=== PATIENT | female | born 1980 | race Caucasian/White ===

== ENCOUNTER 2019-05-11 20:07 | Emergency (ER) | payer OTHER ==
[2019-05-11 20:18] VITALS: BMI 18.3
--- NOTE | 2019-05-11 20:20 | PDOC ---
History of Present Illness - General Chief Complaint: Chest Pain Stated Complaint: CHEST PAIN Time Seen by Provider: 05/11/19 20:20 - History of Present Illness Initial Comments: 05/11/19 20:34 Ms. Mullins is a 39 yo female w/ no significant pmh who presents for evaluation of sudden onset left sided pleuritic chest pain that started 1 hour before presenting to ER. Patient reports that she had previously been in her normal state of health and was cooking dinner for a friend when it occurred. Denies any other symptoms, heavy lifting, or trauma. Denies any long flights or exodgenous hormone use. The patient denies shortness of breath, headache and dizziness. Denies fever, chills, nausea, vomit, diarrhea and constipation. Denies dysuria, frequency, urgency and hematuria. Past History - Past Medical History Allergies/Adverse Reactions: Allergies Allergy/AdvReac Type Severity Reaction Status Date / Time No Known Allergies Allergy Verified 01/05/13 17:12 Home Medications: Ambulatory Orders Azithromycin [Zithromax -] 250 mg PO DAILY #4 tablet 05/11/19 Asthma: No Cancer: No Cardiac Disorders: No COPD: No Diabetes: No HTN: No Seizures: No Thyroid Disease: No - Psycho Social/Smoking Cessation Hx Smoking History: Current every day smoker Have you smoked in the past 12 months: Yes Number of Cigarettes Smoked Daily: 20 Information on smoking cessation initiated: No Hx Alcohol Use: No Drug/Substance Use Hx: No Hx Substance Use Treatment: No Review of Systems - Review of Systems Comments:: 05/11/19 20:41 GENERAL/CONSTITUTIONAL: No fever or chills. No weakness. HEAD, EYES, EARS, NOSE AND THROAT: No change in vision. No ear pain or discharge. No sore throat. CARDIOVASCULAR: +Pleuritic chest pain as described. No shortness of breath RESPIRATORY: No cough, wheezing, or hemoptysis. GASTROINTESTINAL: No nausea, vomiting, diarrhea or constipation. GENITOURINARY: No dysuria, frequency, or change in urination. MUSCULOSKELETAL: No joint or muscle swelling or pain. No neck or back pain. SKIN: No rash NEUROLOGIC: No headache, vertigo, loss of consciousness, or change in strength/ sensation. ENDOCRINE: No increased thirst. No abnormal weight change HEMATOLOGIC/LYMPHATIC: No anemia, easy bleeding, or history of blood clots. ALLERGIC/IMMUNOLOGIC: No hives or skin allergy. *Physical Exam - Vital Signs Last Vital Signs Temp Pulse Resp BP Pulse Ox 98.6 F 112 H 22 H 134/99 100 05/11/19 20:15 05/11/19 20:15 05/11/19 20:15 05/11/19 20:15 05/11/19 20:15 - Physical Exam Comments: 05/11/19 20:41 GENERAL: Awake, alert, and fully oriented, in no acute distress HEAD: No signs of trauma, normocephalic, atraumatic EYES: PERRLA, EOMI, sclera anicteric, conjunctiva clear ENT: Auricles normal inspection, hearing grossly normal, nares patent, oropharynx clear without exudates. Moist mucosa NECK: Normal ROM, supple, no lymphadenopathy, JVD, or masses LUNGS: No distress, speaks full sentences, clear to auscultation bilaterally HEART: +Tachycardic rate. Regular rhythm, normal S1 and S2, no murmurs, rubs or gallops, peripheral pulses normal and equal bilaterally. ABDOMEN: Soft, nontender, normoactive bowel sounds. No guarding, no rebound. No masses EXTREMITIES: Normal inspection, Normal range of motion, no edema. No clubbing or cyanosis. NEUROLOGICAL: Cranial nerves II through XII grossly intact. Normal speech, normal gait, no focal sensorimotor deficits SKIN: Warm, Dry, normal turgor, no rashes or lesions noted. ED Treatment Course - LABORATORY CBC & Chemistry Diagram: 05/11/19 20:30 05/11/19 20:30 Medical Decision Making - Medical Decision Making 05/11/19 20:38 Ms. Mullins is a 39 yo female w/ no significant pmh who presents for evaluation of symptoms concerning for ACS vs. PE vs. other pleural process. Given concerning history for PE, patient will be evaluated with d-dimer, cardiac labs, and EKG. Patient given NS, tylenol, and ASA for symptomatic relief. Further workup pending. 05/11/19 22:16 Patient d-dimer/other labs grossly wnl. Patient reporting relief from symptoms and XR negative. EKG normal sinus. No concern for acute process at this time. Discharging to home for further outpatient follow-up. Laboratory Results - last 24 hr 05/11/19 05/11/19 05/11/19 20:30 20:30 20:30 WBC 11.4 H RBC 4.42 Hgb 13.9 Hct 41.9 D MCV 94.8 MCH 31.5 MCHC 33.3 RDW 12.9 Plt Count 294 D MPV 9.5 D Absolute Neuts (auto) 8.0 Neutrophils % 69.9 Lymphocytes % 21.0 Monocytes % 7.9 Eosinophils % 0.3 Basophils % 0.9 Nucleated RBC % 0 PT with INR 15.10 H INR 1.28 H PTT (Actin FS) 29.8 D-Dimer Sodium 137 Potassium 3.6 Chloride 103 Carbon Dioxide 23 Anion Gap 11 BUN 5.0 L Creatinine 0.7 Est GFR (CKD-EPI)AfAm 126.49 Est GFR (CKD-EPI)NonAf 109.14 Random Glucose 87 Calcium 8.9 Total Bilirubin 0.5 AST 16 ALT 19 Alkaline Phosphatase 68 Creatine Kinase 191 Creatine Kinase Index No Result Required. CK-MB (CK-2) < 1.0 Troponin I < 0.02 Total Protein 7.3 Albumin 3.8 Serum , Qual 05/11/19 05/11/19 20:30 20:30 WBC RBC Hgb Hct MCV MCH MCHC RDW Plt Count MPV Absolute Neuts (auto) Neutrophils % Lymphocytes % Monocytes % Eosinophils % Basophils % Nucleated RBC % PT with INR INR PTT (Actin FS) D-Dimer 238 Sodium Potassium Chloride Carbon Dioxide Anion Gap BUN Creatinine Est GFR (CKD-EPI)AfAm Est GFR (CKD-EPI)NonAf Random Glucose Calcium Total Bilirubin AST ALT Alkaline Phosphatase Creatine Kinase Creatine Kinase Index CK-MB (CK-2) Troponin I Total Protein Albumin Serum , Qual Negative Discharge - Discharge Information Problems reviewed: Yes Clinical Impression/Diagnosis: Pain Disposition: HOME - Additional Discharge Information Prescriptions: Azithromycin [Zithromax -] 250 mg PO DAILY #4 tablet - Follow up/Referral - Patient Discharge Instructions Patient Printed Discharge Instructions: DI for Atypical Chest Pain Additional Instructions: You were evaluated today in the ER for your pain. We performed laboratory testing which were all negative and your symptoms improved with medication. We do not believe anything emergent is occurring at this time. We also sent a prescription to your pharmacy. Take all medications as proscribed. Please follow -up with primary care provider for further evaluation. Return to ER if any fever , chills, return of pain, or other concerning symptoms. - Post Discharge Activity
[2019-05-11] MEDS ORDERED: SODIUM CHLORIDE 1,000 ML IV STA (20:23)
[2019-05-11] MEDS ORDERED: ACETAMINOPHEN 1000 MG/100 ML VIAL (NON FORMULARY) IVPB ONE (20:24)
[2019-05-11] MEDS ORDERED: ASPIRIN 81 MG CHEWABLE TABLETS PO ONE (20:24)
[2019-05-11] MEDS ORDERED: ASPIRIN 81 MG CHEWABLE TABLETS ONE (20:28)
[2019-05-11] MEDS ORDERED: ACETAMINOPHEN INJECTION 100 ML IVPB ONE (20:28)
--- NOTE | 2019-05-11 20:34 | PDOC ---
Attending Attestation - Resident Resident Name: Manny Mcmahan - ED Attending Attestation I have performed the following: I have examined & evaluated the patient, The case was reviewed & discussed with the resident, I agree w/resident's findings & plan - HPI HPI: 05/11/19 20:32 Pt comes with pleuritic chest pain. She is thin, and a smoker. She had her tubes toed after her 3 NSVDs and she takes no OCPs. She uses no drugs and only occ alcohol. She takes no meds and she has no docs. She is healthy; she doesn't work. She feels febrile here. No cough however. - Physicial Exam PE: 05/11/19 22:17 Agree with resident exam - Medical Decision Making 05/11/19 22:17 Pt has normal labs; she has a clear CXR; however she is a smoker and she describes a green cough; she will be treated for an atypical pneumonia. 05/11/19 22:18 Pt is feeling better after hydration and meds in the ER.
[2019-05-11] MEDS ORDERED: MAG HYDROX/AL HYDROX/SIMETH 30 ML UNIT-DOSE CUP PO ONE (20:47)
[2019-05-11] MEDS ORDERED: FAMOTIDINE 20 MG/50 ML IVPB 20 MG/50 ML MG IVPB ONE ×2 (20:47→21:03)
[2019-05-11 20:48] LABS: BASO % 0.9 % (0-2.0); EOS % 0.3 % (0-4.5); HEMATOCRIT 41.9 % (32.4-45.2); HEMOGLOBIN 13.9 GM/dL (10.7-15.3); MCH 31.5 pg (25.7-33.7); MCHC 33.3 g/dl (32.0-36.0); MEAN CELL VOLUME 94.8 fl (80-96); MEAN PLT VOLUME 9.5 fl (7.5-11.1); MONO % 7.9 % (3.8-10.2); NEUT % 69.9 % (42.8-82.8); PLATELET COUNT 294 K/MM3 (134-434); RBC 4.42 M/mm3 (3.60-5.2); RDW 12.9 % (11.6-15.6); WHITE BLOOD COUNT 11.4 K/mm3 (4.0-10.0)
[2019-05-11] MEDS ORDERED: MAG HYDROX/AL HYDROX/SIMETH 30 ML UNIT-DOSE CUP ONE (21:03)
[2019-05-11 21:09] LABS: INR 1.28 (0.83-1.09); PROTHROMBIN TIME (PATIENT) 15.1 SEC (9.7-13.0)
[2019-05-11 21:12] LABS: ACTIVATED PTT 29.8 SECONDS (25.2-36.5)
[2019-05-11 21:27] LABS: ALBUMIN 3.8 g/dl (3.4-5.0); ALK PHOS 68 U/L (45-117); BILIRUBIN,TOTAL 0.5 mg/dL (0.2-1); CALCIUM 8.9 mg/dL (8.5-10.1); CHLORIDE 103 mmol/L (98-107); CO2 23 mmol/L (21-32); CREATININE 0.7 mg/dL (0.55-1.3); GLUCOSE,RANDOM 87 mg/dL (74-106); SGPT/ALT 19 U/L (13-61); SODIUM 137 mmol/L (136-145); TOT PROT 7.3 g/dl (6.4-8.2)
[2019-05-11 21:28] LABS: ANION GAP 11 MMOL/L (8-16); POTASSIUM 3.6 mmol/L (3.5-5.1); SGOT/AST 16 U/L (15-37)
[2019-05-11] MEDS ORDERED: AZITHROMYCIN IVPB 500 MG in DEXTROSE 5%-WATER - 250 ML IVPB ONE (21:29)
[2019-05-11] MEDS ORDERED: CEFTRIAXONE 1 GM in DEXTROSE 5%-WATER - 100 ML IVPB ONE (21:29)
[2019-05-11] MEDS ORDERED: CEFTRIAXONE 1 GM/50 ML BAG ONE (21:51)
[2019-05-11] MEDS ORDERED: AZITHROMYCIN IVPB 500 MG/250 ML BAG IVPB ONE (22:15)
[2019-05-11 22:41] VITALS: BP 118/83; PULSE 82; TEMP 98.6
--- NOTE | 2019-05-12 14:55 | EKG ---
Test Reason : Blood Pressure : / mmHG Vent. Rate : 103 BPM Atrial Rate : 103 BPM P-R Int : 128 ms QRS Dur : 074 ms QT Int : 328 ms P-R-T Axes : 059 061 085 degrees QTc Int : 429 ms POOR DATA QUALITY, INTERPRETATION MAY BE ADVERSELY AFFECTED SINUS TACHYCARDIA NONSPECIFIC T WAVE ABNORMALITY ABNORMAL ECG NO PREVIOUS ECGS AVAILABLE Confirmed by ROSY TINOCO, RODRICK ([id number]) on 05/12/2019 2:55:17 PM Referred By: Confirmed By:RODRICK GALLEGOS MD
== END 2019-05-11 23:21 | disposition home or self-care (01) ==
LOC: JER 20:07
PROC: 3E033GC Introduction of Other Therapeutic Substance into Peripheral Vein, Percutaneous Approach (ICD-10-PCS; principal; 2019-05-11)
PROC: 3E03329 Introduction of Other Anti-infective into Peripheral Vein, Percutaneous Approach (ICD-10-PCS; 2019-05-11)
PROC: 3E033NZ Introduction of Analgesics, Hypnotics, Sedatives into Peripheral Vein, Percutaneous Approach (ICD-10-PCS; 2019-05-11)
PROC: 3E03329 Introduction of Other Anti-infective into Peripheral Vein, Percutaneous Approach (ICD-10-PCS; 2019-05-11)
DX: J18.9 Pneumonia, unspecified organism (principal); F17.210 Nicotine dependence, cigarettes, uncomplicated
CPT/HCPCS: 36415; 71046-TC-FY; 80053; 82550; 82553; 84484; 84703; 85025; 85379; 85610; 85730; 93005; 93010; 96365; 96366; 96367; 96375; 99284-25; J0131; J7030